=== PATIENT | male | born 1965 | race Caucasian/White ===

== ENCOUNTER 2020-09-21 21:38 | Emergency (ER) | payer MEDICAID, OTHER ==
[~2020-09-21] VITALS: Ht 180.3 cm; Wt 102.1 kg
[2020-09-22 00:30] VITALS: BP 109/79
[2020-09-22] MEDS ORDERED: KETOROLAC TROMETH 60MG/2ML VIAL IM ONE (01:15)
== END 2020-09-22 02:53 | disposition home or self-care (01) ==
LOC: ER 21:38 → EDBD 21:38 → ER 09-22 02:53
DX: T88.1XXA Other complications following immunization, not elsewhere classified, initial encounter (principal); J03.90 Acute tonsillitis, unspecified; Z23 Encounter for immunization
CPT/HCPCS: 70450; 87070; 87880; 96372; 99284; J1885